=== PATIENT | female | born 1995 | race American Indian/Alaskan Native ===

== ENCOUNTER 2016-12-31 12:47 | Emergency (ER) | payer SELFPAY ==
[2016-12-31 13:22] VITALS: BMI 45.2
== END 2016-12-31 17:00 | disposition home or self-care (01) ==
LOC: H.EROB2 12:47
DX: O47.1 False labor at or after 37 completed weeks of gestation (principal); Z3A.40 40 weeks gestation of pregnancy; O48.0 Post-term pregnancy

== ENCOUNTER 2017-01-01 14:04 | Inpatient (IN) | payer MEDICAID ==
[2017-01-01 14:54] VITALS: BMI 44.9
[2017-01-01] MEDS ORDERED: Lactated Ringer's 1,000 ML IV SCH ×2 (15:00→17:15)
[2017-01-01] MEDS ORDERED: Penicillin G Potassium 5 MU in Sodium Chloride 0.9% 50 ML IVPB ONE (16:50)
[2017-01-01] MEDS ORDERED: Penicillin G 5 Million Unit Vial IVPB ONE (17:06)
[2017-01-01] MEDS ORDERED: Nalbuphine 20 mg/ml Inj (1 ml) IVP ONE (17:08)
[2017-01-01 18:01] LABS: BASO % 0.2 % (0.0-2.0); EOS % 0.1 % (0.0-4.0); HEMATOCRIT 37.4 % (34.0-47.0); LYMPH # 1.6 K/uL (1.0-4.3); LYMPH % 7.4 % (20.0-40.0); MEAN CELL VOLUME 93.9 fl (81.0-99.0); MEAN CORPUSCULAR HEMOGLOBIN 31.2 pg (27.0-31.0); MEAN CORPUSCULAR HGB CONC 33.2 g/dL (33.0-37.0); MEAN PLATELET VOLUME 9.7 fl (7.2-11.7); MONO # 1.8 K/uL (0.0-0.8); MONO % 8.5 % (0.0-10.0); NEUT % 83.8 % (50.0-75.0); NRBC % 0.1 % (0.0-0.0); PLATELET COUNT 266 K/uL (130-400); RED CELL DISTRIBUTION WIDTH 14.1 % (11.5-14.5); WHITE BLOOD COUNT 21.4 K/uL (4.8-10.8)
[2017-01-01 18:39] LABS: NEUTROPHIL 85 % (42-75); TOTAL CELLS COUNTED 100
[2017-01-01] MEDS ORDERED: Oxytocin 30 units/LR 500ML 30 U/500 ML BAG IV ONE ×2 (20:29→20:36)
[2017-01-01] MEDS ORDERED: Lidocaine 1% Inj (20ml) ONE (20:40)
[2017-01-01] MEDS ORDERED: Fentanyl/Bupivacaine HCl 250 ML EPI ONE (21:01)
--- NOTE | 2017-01-02 02:28 | OBDS ---
DELIVERY PERSONNEL Delivery Doctor: Demetrice Woodruff MD District Court Justice: Patricia Abernathy RN Anesthesiologist: Yuni Menjivar MD MATERNAL INFORMATION Delivery Anesthesia: Epidural Medications in Delivery: Oxytocin 30 units in 500 mL Provider Comments: Delivered a live baby boy at 1:51 AM the baby was bulb suctioned on the perineum and transferred to maternal chest. The cord was clamped and cut and 3 vessels noted cord blood was ob tained and sent to lab. The placenta was delivered at 1:54 AM and intact, the estimated blood loss wa s 150 mL. There was a first-degree vaginal laceration which was repaired with 2-0 Rapide. Pitocin was infused to assist in uterine involution. The mother tolerated the procedure well. Once the well baby nursery with Apgars of 9 and 9 weighing 4005 g LABOR SUMMARY EDC: 12/29/2016 00:00 No. Babies in Womb: 1 Attempted: No Labor Anesthesia: Epidural LABOR INFORMATION Reason for Induction: Not Applicable Onset of Labor: 01/01/2017 14:00 Oxytocin: Augmentation Group B Beta Strep: Done, Result Unknown Antibiotics # of Doses: 0 Antibiotics Time of Last Dose: 0 Steroids Given: None Reason Steroids Not Administered: Not Applicable MEMBRANES Membranes Rupture Method: Spontaneous Rupture of Membranes: 01/01/2017 14:00 Amniotic Fluid Color: Clear Amniotic Fluid Amount: None Amniotic Fluid Odor: Normal VAGINAL DELIVERY Episiotomy: None Laceration Extension: First Degree Laceration Type: Vaginal Laceration Repair Note: repaired with 2.0 rapide Sponge Count Correct: Yes Sharps Count Correct: Yes INFANT INFORMATION BABY A Gestational Age at Delivery: 40.3
--- NOTE | 2017-01-02 02:41 | OBHP ---
Datetime: 01/01/2017 14:41 IP Adm Impression: Term, intrauterine IP Admit Plan: Admit to unit; Initiate labor protocol Admit Comment, IP Provider: S: 21 y/o @ 40.3 IUP presents with increased uterine contractions a nd SROM on her way to the hosp. States her clothes got wet suddenly and pants are vissible wet. She was also in our hosp yesterday for CTXs and DC home in latent labor. The contractions Q4min, pressur e-like in nature. Pain radiates to the back and hips. Reports +FM. Denies headaches, palpitations, S OB or CP. Allergies: NKDA PMH: none meds: PNVs PShx: none ObHx: induced 12/2015 ABO: O+ antibody: neg RPR: neg HIV: neg HbsAg: neg rubella: immune Quantiferon Gold: neg Tdap: 11/17/2016 GBS: unknown SOC: denies smoking, alcohol, and drugs O: CV: RRR Resp: CTA bl Pelvic: 2 cm dilated, 85% effaced, SROM A: 21 y/o @ 40.3 IUP presents with SROM Admit to hosp Initiate Labor protocol LR IV bolus GBS unknown will start prophylaxis monitoring Ryan Belle PGY1 The patient was seen with the resident I agree with and we will admit the patient for delivery Pelvic Type - PN: Adequate Extremities - PN: Normal Abdomen - PN: Normal Back - PN: Normal Breast - PN: Normal Lungs - PN: Normal Heart - PN: Normal Thyroid - PN: Normal Neurologic - PN: Normal HEENT - PN: Normal General - PN: Normal FHR - Baseline A Provider: 140 Amniotic Fluid Color, Provider: Clear Membranes, Provider: Ruptured Comments, ACOG Physical Exam: Spec exam: Confirmed LOF, clear, in cul de sac. VE: Dil 2cm, Eff 85%, St 0 Gestation - Est Wks by US: 40.3 EGA AdmitDate IP: 40.3 Vital Signs Provider: Reviewed IP Indication for Induction: Not Applicable IP Chief Complaint: Uterine contractions; Suspected ruptured membranes NICHD Decel Fetus A IP Provider: None Dilatation, Provider: 2 Effacement, Provider: 85 Station, Provider: 0 Genitourinary Exam: Normal DTRs - PN: Normal Datetime: 12/31/2016 13:34 Weight - Estimated: 2934 Contraction Comments Provider: every 5 min IP Hx Assessment: The History has been Reviewed and is Current NICHD Variability Prov Fetus A: Moderate 6-25bpm NICHD Accel Fetus A IP Provider: [id number] FHR Category Provider Fetus A: Category I
[2017-01-02 06:23] VITALS: BP 138/53; PULSE 109; RESP 18; TEMP 98.1
--- NOTE | 2017-01-02 12:31 | OBPPN ---
Datetime: 01/02/2017 07:48 PP Pain Prov: Within normal limits PP Nausea Prov: Denies PP Flatus Prov: No PP BM Prov: No PP Breasts Prov: Normal PP Heart Prov: Normal PP Lungs Prov: Normal PP Abdomen/Uterus Prov: Normal PP Lochia Prov: Normal PP Vulva/Perineum Prov: Not Done PP CVA Tenderness Prov: Not Done PP Extremities Prov: Normal PP C/S Incision Prov: Not Applicable PP Progress Prov: Not Applicable PP Impression Prov: Normal progression PP Plan Prov: Continue present management PP Progress Note Prov: 21 y/o now seen and examined at bedside. Patient delivered via ear ly this morning. Patient reports mild pelvic pain controlled w/ pain meds. Laying w/o dizziness. B reast/bottle feeding w/o difficulty. Tolerating PO diet well. Lochia is less than menses in volume. Voiding freely w/ no blood noted. Reports no bowel movement. Denies fevers, chills, n/v/d, CP/SOB , lightheadedness and calf pain. PE: GEN: A_O, resting comfortably in bed, NAD Lung: CTA B/L, no wheezing, rhonchi, or rales CVS: S1, S2 wnl, RRR Abd: +BS, firm fundus below umbilicus. EXT: no edema, negative Isra's, calves non-tender Assessment: 21 y/o now s/p on 01/02/2017 @ 01:51 tolerating pain w/ medication, tolerati ng oral intake, adequate urine output, doing well on PPD0. Plan: Percocet 5/325 mg 1-2 tabs PO Q6h prn for mod/severe pain. Ibuprofen 600 mg 1 tab Q6h PO pr n for mild pain. Encourage breast feeding and ambulation. Kye Dimas M.D. It Architect PGY-1 obh addendum: pt seen _ exmined by me. agree with above assessment and plan. IP PP Procedures: None Vital Signs Provider PP: Reviewed; Within Normal Limits
[2017-01-03 07:09] LABS: HEMATOCRIT 31.4 % (34.0-47.0); MEAN CELL VOLUME 92.4 fl (81.0-99.0); MEAN CORPUSCULAR HEMOGLOBIN 31.5 pg (27.0-31.0); MEAN CORPUSCULAR HGB CONC 34.1 g/dL (33.0-37.0); RED CELL DISTRIBUTION WIDTH 14.5 % (11.5-14.5); WHITE BLOOD COUNT 16.2 K/uL (4.8-10.8)
--- NOTE | 2017-01-03 14:46 | OBPPN ---
Datetime: 01/03/2017 12:05 PP Pain Prov: Within normal limits PP Nausea Prov: Denies PP Flatus Prov: Yes PP BM Prov: No PP Breasts Prov: Not Done PP Heart Prov: Normal PP Lungs Prov: Normal PP Abdomen/Uterus Prov: Normal PP Lochia Prov: Normal PP Vulva/Perineum Prov: Not Done PP CVA Tenderness Prov: Not Done PP Extremities Prov: Not Done PP C/S Incision Prov: Not Applicable PP Progress Prov: Not Applicable PP Impression Prov: Normal progression PP Plan Prov: Continue present management PP Progress Note Prov: 21 y/o now seen and examined at bedside. Patient delivered via . P atient reports mild pelvic pain controlled w/ pain meds. Laying w/o dizziness. Breast/bottle feedin g w/o difficulty. Tolerating PO diet well. Lochia is less than menses in volume. Voiding freely w/ no blood noted. Reports no bowel movement. Denies fevers, chills, n/v/d, CP/SOB, lightheadedness a nd calf pain. PE: GEN: A_O, resting comfortably in bed, NAD Lung: CTA B/L, no wheezing, rhonchi, or rales CVS: S1, S2 wnl, RRR Abd: +BS, firm fundus below umbilicus. EXT: no edema, negative Isra's, calves non-tender Assessment: 21 y/o now s/p on 01/02/2017 @ 01:51 tolerating pain w/ medication, tolerati ng oral intake, adequate urine output, doing well on PPD1. Plan: Percocet 5/325 mg 1-2 tabs PO Q6h prn for mod/severe pain. Ibuprofen 600 mg 1 tab Q6h PO pr n for mild pain. Encourage breast feeding and ambulation. Kye Dimas M.D. Agronomy Supervisor PGY-1 OB Hospitalist on-call. I saw and examined this patient on rounds. Agree with note. JATINDER JACOBO PP Procedures: None Vital Signs Provider PP: Reviewed; Within Normal Limits
[2017-01-03] MEDS ORDERED: Benzocaine/Menthol SPRAY TOP PRN (18:45)
--- NOTE | 2017-01-04 10:57 | OBPPN ---
Datetime: 01/04/2017 06:02 PP Pain Prov: Within normal limits PP Nausea Prov: Denies PP Flatus Prov: Yes PP BM Prov: Yes PP Breasts Prov: Normal PP Heart Prov: Normal PP Lungs Prov: Normal PP Abdomen/Uterus Prov: Normal PP Lochia Prov: Normal PP Vulva/Perineum Prov: Normal PP CVA Tenderness Prov: Normal PP Extremities Prov: Normal PP C/S Incision Prov: Not Applicable PP Progress Prov: Abnormal PP Comments Phys Exam Prov: Abd: +BS, firm fundus below umbilicus. EXT: no edema, negative Isra's, calves non-tender : pt not currently as she chooses not to PP Impression Prov: Normal progression PP Plan Prov: Continue present management; Discharge PP Progress Note Prov: Pt seen and examined at bedside. Patient reports mild pelvic pain controlled w/ pain meds. Bottle feeding only w/o difficulty. Tolerating PO diet well. Lochia is less than mense s in volume. Voiding freely w/ no blood noted. Reports + bowel movement. Denies fevers, chills, n/ v/d, CP/SOB, lightheadedness and calf pain. A/P: 21 y/o now s/p on 01/02/2017doing well on PPD#2. -continue current management -Ibuprofen 600 mg 1 tab Q6h PO prn for mild pain. -Encouraged and discussed benefits of breast feeding -DC today Josiah Manriquez MD PGY1 @ 6:06am The patient was seen with the resident and I agree with the notes Vital Signs Provider PP: Reviewed; Within Normal Limits
--- NOTE | 2017-01-04 10:57 | OBDCSUM ---
Datetime: 01/04/2017 06:06 Discharged to, Provider: Home Follow up at, Provider: [facility] clinic Disch Instr Activity: Normal activity; May be up to bathroom; May Shower Disch Instr Diet: Regular Discharge Instructions, Provider: Routine instructions given Discharge Diagnosis, Provider: Term Delivered Discharge Time: 01/04/2017 06:30 Follow up in weeks, Provider: 6 weeks Disch Referrals: None Contraception discussed, Prov: Yes Disch Activity Restrictions: No lifting; No driving; No sexual activity; Nothing in vagina - Interco urse, tampons, douche Discharge Comment, Provider: The patient was seen with the resident and I agree with the notes Contraception after Delivery: Undecided
== END 2017-01-04 22:45 | disposition home or self-care (01) | DRG 373 ==
LOC: H.EROB2 14:04 → H.L&D 15:10 → H.OB/GYN 01-02 03:55
PROVIDERS: ADMIT Obstetrics & Gynecology Gynecology; ATTEND Obstetrics & Gynecology Gynecology
PROC: 4A1HXCZ Monitoring of Products of Conception, Cardiac Rate, External Approach (ICD-10-PCS; 2017-01-01)
PROC: 3E033VJ Introduction of Other Hormone into Peripheral Vein, Percutaneous Approach (ICD-10-PCS; principal; 2017-01-02)
PROC: 10E0XZZ Delivery of Products of Conception, External Approach (ICD-10-PCS; 2017-01-02)
PROC: 0HQ9XZZ Repair Perineum Skin, External Approach (ICD-10-PCS; 2017-01-02)
DX: O48.0 Post-term pregnancy (principal); O70.0 First degree perineal laceration during delivery; Z3A.40 40 weeks gestation of pregnancy; Z37.0 Single live birth